=== PATIENT | male | born 2000 | race Caucasian/White ===

== ENCOUNTER 2021-04-09 17:55 | Emergency (ER) | payer OTHER, SELFPAY ==
[2021-04-09] VITALS (8 sets, daily range): BP systolic 105–154; BP diastolic 51–99; PULSE 71–101; RESP 11–20; TEMP 37; O2SAT 95–99; BMI 34.5
--- NOTE | 2021-04-09 18:50 | XRR_ITS ---
PROCEDURE INFORMATION: Exam: XR Chest Exam date and time: 04/09/2021 6:50 PM Age: 20 years old Clinical indication: Shortness of breath; Patient HX: Post covid quarantine 04/06. Increased short of breath; Additional info: Post covid SOB TECHNIQUE: Imaging protocol: XR of the chest. Views: 1 view. COMPARISON: No relevant prior studies available. FINDINGS: Lungs: Unremarkable. No consolidation. Pleural spaces: Unremarkable. No pleural effusion. No pneumothorax. Heart/Mediastinum: Unremarkable. No cardiomegaly. Diaphragm: Mild elevation of the left hemidiaphragm. Bones/joints: Unremarkable. XR/XR chest 1V portable [id number] IMPRESSION: No evidence for acute cardiopulmonary disease.
--- NOTE | 2021-04-09 18:51 | ED_ITS ---
HPI - SOB/Dyspnea General: Chief Complaint: Shortness of Breath/Dyspnea Stated Complaint: SOB Time Seen by Provider: 04/09/21 18:20 Source: patient Mode of arrival: ambulatory Limitations: no limitations History of Present Illness: HPI Narrative: Patient is a 20-year-old male who presents to ED today with a complaint of shortness of breath. Patient tells me he began having COVID symptoms approximately 2 weeks ago. He tested positive on 03/27. Patient states he quarantined for the full 10 days and overall did very well with the illness. He states he had some body aches, fatigue, and generally not feeling well. Patient felt like he was over the illness but states 3 days ago he began having shortness of breath. Patient states he feels short of breath at rest and certainly with any form of exertion. He is still able to perform normal daily functions but states he feels like he gets winded easily and sometimes feels lightheaded. Patient states he never had shortness of breath during his acute illness. MD elicited complaint: shortness of breath Pertinent past history: other (recent COVID infection) Onset (ago): day(s) Context: recent illness Timing: constant and progressively worsening Severity: moderate Exacerbating factors: exertion Relieving factors: rest Associated symptoms: Reports lightheadedness; Deny abdominal pain, chest congestion, chest pain, extremity pain, fever(s), hemoptysis, nausea, orthopnea, palpitations, syncope or vomiting Treatment prior to arrival: none Related Data: Home oxygen amount: none Review of Systems Const: Denies: fever(s), chills, body aches, change in appetite, change in weight, fatigue or malaise Eyes: Denies: change in vision or blurry vision ENMT: Denies: throat pain, odynophagia, nasal discharge or nasal congestion Card: Reports: lightheadedness and dyspnea on exertion; Denies: chest pain, palpitations, irregular heart rhythm, edema, swelling of feet/ankles, syncope, pre-syncope, orthopnea, leg pain with exertion or acrocyanosis Resp: Reports: dyspnea; Denies: productive cough, non-productive cough, wheezing, pain on inspiration, hemoptysis or chest congestion GI: Denies: abdominal pain, nausea, vomiting or diarrhea Musc: Denies: neck pain, back pain, extremity pain or joint pain Skin/Breast: Denies: rash Neuro: Denies: headache(s), numbness in extremities, weakness in extremities or sensory changes Physical Exam Const: COMMON NORMALS: no acute distress, average body habitus, patient oriented x3, no limitations, healthy appearing, alert and well nourished GENERAL APPEARANCE: cooperative ORIENTATION/CONSCIOUSNESS: Yes awake, Yes oriented to person, Yes oriented to place and Yes oriented to time HENMT: COMMON NORMALS: normocephalic and atraumatic HEAD & SCALP: normocephalic and atraumatic Neck/C-Spine: COMMON NORMALS: full ROM, no lymphadenopathy and no meningeal signs Resp: COMMON NORMALS: normal respiratory effort and clear to auscultation bilaterally AUSCULTATION: clear to auscultation bilaterally Cardio: COMMON NORMALS: regular rate and regular rhythm RATE: regular rate RHYTHM: regular rhythm Extremity: COMMON NORMALS: normal to inspection Neuro: COMMON NORMALS: patient oriented x3 SENSORIUM/ORIENTATION: Yes alert, Yes oriented to person, Yes oriented to place and Yes oriented to time MENINGEAL SIGNS: Yes no meningeal signs Skin: COMMON NORMALS: no rashes or lesions noted GENERAL SKIN EXAM: no rashes or lesions noted Course Vital Signs: Vital signs: Vital Signs Temperature 98.6 F 04/09/21 18:03 Pulse Rate 80 04/09/21 19:45 Respiratory Rate 16 04/09/21 19:45 Blood Pressure 120/74 04/09/21 19:45 Pulse Oximetry 95 04/09/21 19:45 MDM - SOB/Dyspnea MDM Narrative: Medical decision making narrative: Patient clinically appears in no acute distress. His vital signs are stable. Patient was apparently seen at a walk-in clinic and told he needed to come to the ED for pulmonary emboli rule out. Clinically I would have a very low suspicion for this however did go ahead and obtain basic labs as well as a D-dimer. These were unremarkable. His CXR is normal. Patient is stable for discharge. Lab Data: Labs: Lab Results 04/09/21 04/09/21 04/09/21 Range/Units 19:18 19:18 19:18 WBC 7.7 (4.0-10.0) 10^3/ uL RBC 5.36 H (4.1-5.3) 10^6/u L Hgb 16.2 (11.7-16.6) g/dL Hct 46.9 (42.0-52.0) % MCV 87.5 (80-94) fl MCH 30.2 (28.0-34.0) pg MCHC 34.5 (30.0-36.0) g/dL RDW 11.6 L (12.1-15.1) % Plt Count 236 (130-400) 10^3/c mm MPV 10.0 (7.4-10.4) fL Neut % (Auto) 63.1 % Lymph % (Auto) 26.6 % [place] % (Auto) 7.7 % Eos % (Auto) 1.7 % Baso % (Auto) 0.6 % Neut # (Auto) 4.87 (1.8-7.7) 10^3/u L Lymph # (Auto) 2.1 (0.8-4.8) 10^3/u L [place] # (Auto) 0.6 (0.2-0.9) 10^3/u L Eos # (Auto) 0.1 (0.0-0.8) 10^3/u L Baso # (Auto) 0.1 (0.0-0.1) 10^3/u L Nucleated RBC % (a uto) 0 % Nucleated RBCs # 0.0 /100WBC D-Dimer <= 0.27 (0-0.59) ug/mIFE U Sodium 140 (136-145) mmol/L Potassium 3.8 (3.5-5.1) mmol/L Chloride 104 (98-107) mmol/L Carbon Dioxide 24 (22-29) mmol/L Anion Gap 15.8 (5-19) BUN 7 (6-20) mg/dL Creatinine 0.6 L (0.7-1.2) mg/dL GFR Calculation 168.5 H (90-130) mL/min Glucose 83 (65-115) mg/dL Calculated Osmolal ity 287 (285-295) mOsm/k g Calcium 9.9 (8.5-10.5) mg/dL Total Bilirubin 0.4 (0.15-1.2) mg/dL AST 24 (0-40) U/L ALT 73 H (0-41) U/L Alkaline Phosphata se 87 (40-130) IU/L Total Protein 7.7 (6.6-8.7) g/dL Albumin 4.7 (3.5-5.2) g/dL Globulin 3.0 (1.3-4.6) g/dL Imaging Data^: CXR: My impression: NAD Discharge Plan Discharge Patient Disposition: Home Clinical Impression: Persistent shortness of breath after COVID-19 Condition: Stable Discharge Orders: Discharge ED (Routine); Ordered 04/09/21 Ordered By: Moon Rachel Coding Level of Care Code ED Chief Librarian Branch for Chg Fwd Exam Detailed
[2021-04-09 19:28] LABS: Basophils # 0.1 10^3/uL (0.0-0.1); Basophils % 0.6 %; Eosinophils # 0.1 10^3/uL (0.0-0.8); Eosinophils % 1.7 %; Hematocrit 46.9 % (42.0-52.0); Hemoglobin 16.2 g/dL (11.7-16.6); Lymphocytes # 2.1 10^3/uL (0.8-4.8); Lymphocytes % 26.6 %; Mean Corpuscular HGB Conc 34.5 g/dL (30.0-36.0); Mean Corpuscular Hemoglobin 30.2 pg (28.0-34.0); Mean Corpuscular Volume 87.5 fl (80-94); Monocytes # 0.6 10^3/uL (0.2-0.9); Monocytes % 7.7 %; Neutrophils # 4.87 10^3/uL (1.8-7.7); Neutrophils % 63.1 %; Nucleated Red Blood Cells % 0 %; Platelet Count 236 10^3/cmm (130-400); Red Blood Count 5.36 10^6/uL (4.1-5.3); Red Cell Distribution Width 11.6 % (12.1-15.1); White Blood Count 7.7 10^3/uL (4.0-10.0)
[2021-04-09 19:49] LABS: D Dimer <= 0.27 ug/mIFEU (0-0.59)
[2021-04-09 19:56] LABS: Alanine Aminotransferase 73 U/L (0-41); Albumin Level 4.7 g/dL (3.5-5.2); Alkaline Phosphatase 87 IU/L (40-130); Anion Gap 15.8 (5-19); Aspartate Amino Transferase 24 U/L (0-40); Blood Urea Nitrogen 7 mg/dL (6-20); Calcium 9.9 mg/dL (8.5-10.5); Carbon Dioxide 24 mmol/L (22-29); Chloride 104 mmol/L (98-107); Glomerular Filtration Rate 168.5 mL/min (90-130); Glucose 83 mg/dL (65-115); Osmolality Calculated 287 mOsm/kg (285-295); Potassium 3.8 mmol/L (3.5-5.1); Sodium 140 mmol/L (136-145); Total Bilirubin 0.4 mg/dL (0.15-1.2); Total Protein 7.7 g/dL (6.6-8.7)
== END 2021-04-09 20:11 | disposition home or self-care (01) ==
PROVIDERS: Emergency Provider Physician Assistant
DX: R06.02 Shortness of breath (principal); B94.8 Sequelae of other specified infectious and parasitic diseases
CPT/HCPCS: 71045; 80053; 85025; 85378; 99283

== ENCOUNTER 2024-04-04 02:01 | Emergency (ER) | payer OTHER, SELFPAY ==
[2024-04-04 02:10] VITALS: BP 137/91; PULSE 114; RESP 20; TEMP 36.3; O2SAT 94; BMI 35.2
--- NOTE | 2024-04-04 02:11 | W.ED.ALLEREA ---
HPI - Allergic Reaction General: Chief complaint: Allergic Reaction Stated complaint: SOB allergic reaction lips swelling peanut Time Seen by Provider: 04/04/24 02:05 History of Present Illness: HPI narrative: Patient presents to the ER complaining shortness of breath lip swelling all started tonight after eating peanuts. Patient accidentally ate peanuts. He knew he was allergic to them. He has had this reaction before. He usually gets the IV with medicine. He had no treatment prior to arrival. Related Data Previous Rx's Medication Instructions Recorded epinephrine 0.3 mg/0.3 mL 0.3 mg (0.3 mL) IM Q10M PRN 04/04/24 injection, auto-injector (EpiPen anaphylaxis #2 ea 2-Jose Luis) Allergies Allergy/AdvReac Type Severity Reaction Status Date / Time peanut Allergy ALGY-Anaphy Verified 04/09/21 18:09 laxis Review of Systems General: Reports: 10 or more systems reviewed and unremarkable except in HPI and below Physical Exam Const: COMMON NORMALS: no acute distress, average body habitus, patient oriented x3, no limitations, healthy appearing, alert and well nourished HENMT: COMMON NORMALS: normocephalic, atraumatic, hearing grossly normal bilaterally, external ears normal, Normal external nose present and moist oral mucous membranes HEAD & SCALP: normocephalic and atraumatic NOSE: Normal external nose present EXTERNAL EAR: Yes external ears normal Neck/C-Spine: COMMON NORMALS: no JVD Chest: COMMONS NORMALS: normal inspection of the chest and normal palpation of entire chest wall Resp: COMMON NORMALS: normal respiratory effort, No retractions, No use of accessory muscles and clear to auscultation bilaterally AUSCULTATION: clear to auscultation bilaterally Cardio: COMMON NORMALS: no JVD, regular rate, regular rhythm, S1 normal heart sound present, S2 normal heart sound present, No gallops present (Cardio), No clicks present (Cardio), No murmurs present (Cardio) and No rub (Cardio) RATE: regular rate RHYTHM: regular rhythm HEART SOUNDS: S1 normal heart sound present and S2 normal heart sound present GI: COMMON NORMALS: Normal to inspection, nondistended, normoactive bowel sounds present, Soft to palpation, non-tender, No hepatosplenomegaly present and no masses PALPATION: Yes Soft to palpation and Yes No hepatosplenomegaly present Neuro: COMMON NORMALS: patient oriented x3 SENSORIUM/ORIENTATION: Yes alert Course Vital Signs: Vital signs: Vital Signs Temperature 97.4 F L 04/04/24 02:10 Pulse Rate 95 04/04/24 03:06 Respiratory Rate 20 H 04/04/24 02:18 Blood Pressure 134/86 04/04/24 03:06 Pulse Oximetry 93 04/04/24 03:06 Oxygen Delivery Me thod Room Air 04/04/24 03:06 MDM - Allergic Reaction Medical Decision Making Patient was given 125 mg Solu-Medrol, 50 mg Benadryl, and 40 mg Pepcid all IV, patient was then observed for approximately 1 hour. Patient was feeling better. Patient be discharged home. Differential Diagnosis Likely anaphylaxis and allergic reaction Medical Records I reviewed the patient's medical records. Lab Data I reviewed the patient's lab results. No radiology studies performed this visit Discharge Plan Discharge Patient Disposition: Home Clinical Impression: Allergic reaction Qualifiers: Encounter type: initial encounter Qualified Code(s): T78.40XA - Allergy, unspecified, initial encounter Condition: Stable Prescriptions: New epinephrine [EpiPen 2-Jose Luis] 0.3 mg/0.3 mL auto-injector 0.3 mg IM Q10M PRN (Reason: anaphylaxis) Qty: 2 0RF Rx Instructions: for 2 doses Discharge Orders: Discharge ED (Routine); Ordered 04/04/24 Ordered By: Stanley Anderson Referrals: Rony Shepard MD [Primary Care Provider] - 1 week Patient Instructions: Peanut Allergy (ED) Activity Restrictions/Additional Instructions: You are given Solu-Medrol, Benadryl, and Pepcid and your IV for your allergic reaction to peanuts. Please continue to take [id number] Pepcid and Benadryl for the next 24 hours and then as needed. If this does not control your reaction or your reaction worsens please feel free to return to the ER. Coding Level of Care Code ED Entry Level Software Developer for Mya [employer]
[2024-04-04] MEDS: diphenhydrAMINE 50 mg/mL SDV 1mL IVP (02:13)
[2024-04-04] MEDS: methylPREDNISolone sod succ 125 mg/2 mL INJ IVP (02:16)
[2024-04-04 02:18] VITALS: BP 137/91; PULSE 101; RESP 20; O2SAT 95
[2024-04-04] MEDS: famotidine 20 mg/2 mL INJ 40 MG IVP (02:18)
[2024-04-04 03:06] VITALS: BP 134/86; PULSE 95; O2SAT 93
[2024-04-04] MEDS: EPINEPHrine 1 mg/mL INJ 0.3 MG IM (03:32)
[2024-04-04 04:19] VITALS: BP 142/95; PULSE 87; RESP 18; O2SAT 94
== END 2024-04-04 04:20 | disposition home or self-care (01) ==
PROVIDERS: Emergency Provider Emergency Medicine; PCP Family Medicine
DX: T78.1XXA Other adverse food reactions, not elsewhere classified, initial encounter (principal); X58.XXXA Exposure to other specified factors, initial encounter; Z91.010 Allergy to peanuts
CPT/HCPCS: 96372; 96374; 96375; 99284; J0171; J1200; J2919; J3490